=== PATIENT | male | born 1955 | race Caucasian/White ===

== ENCOUNTER 2017-07-15 08:22 | Day surgery (SDC) | payer OTHER ==
[~2017-07-15] VITALS: Ht 193 cm; Wt 86.4 kg
[~2017-07-15 08:22] MED LIST: B/P MED; IBUP800T23 PO
[2017-07-15 08:25] VITALS: BP 90/46; PULSE 90; RESP 20; TEMP 97.5; O2SAT 97
[2017-07-15 08:54] LABS: AUTOMATED NEUTROPHIL # 6.5 TH/MM3 (1.8-7.7); BASOPHIL % 0.5 % (0.0-2.0); EOSINOPHIL # 0.1 TH/MM3 (0-0.4); EOSINOPHIL % 0.9 % (0.0-4.0); LYMPH % 11.6 % (9.0-44.0); MEAN CORPUSCULAR HGB CONC 35.5 % (32.0-36.0); MEAN PLATELET VOLUME 9.1 FL (7.0-11.0); MONOCYTE # 0.8 TH/MM3 (0-0.9); PLATELET COUNT 68 TH/MM3 (150-450); RED BLOOD COUNT 2.07 MIL/MM3 (4.50-5.90); RED CELL DISTRIBUTION WIDTH 13.1 % (11.6-17.2); WHITE BLOOD COUNT 8.5 TH/MM3 (4.0-11.0)
[2017-07-15] MEDS ORDERED: ceFAZolin 2 GM PREMIX 50 ML IV SCH (09:00)
[2017-07-15] MEDS ORDERED: SODIUM CHLOR 0.9% 1000 ML INJ 1,000 ML IV SCH (09:00)
[2017-07-15] MEDS ORDERED: VANCOMYCIN 1000 MG/NS 250 ML ON-CALL IV SCH ×2 (09:00)
[2017-07-15 09:02] LABS: INTERNATIONAL NORMALIZED RATIO 1.6 RATIO; PROTHROMBIN TIME - PATIENT 16.6 SEC (9.8-11.6)
[2017-07-15] MEDS ORDERED: FURO40TA PO (09:08)
[2017-07-15] MEDS ORDERED: AMLO5TAB2 PO (09:08)
[2017-07-15] MEDS ORDERED: SPIR100T PO (09:08)
[2017-07-15] MEDS ORDERED: OXYC1CAP2 (09:08)
[2017-07-15] MEDS ORDERED: CIPR-9 PO (09:08)
[2017-07-15] MEDS ORDERED: SENN8.6T81 PO (09:08)
[2017-07-15] MEDS ORDERED: LINE1TAB PO (09:08)
[2017-07-15 09:18] LABS: HEMATOCRIT 19.9 % (39.0-51.0); HEMOGLOBIN 7.1 GM/DL (13.0-17.0)
[2017-07-15 10:02] LABS: BICARBONATE 16.3 MEQ/L (21.0-32.0); CALCIUM 8.5 MG/DL (8.5-10.1); CREATININE 1.74 MG/DL (0.60-1.30)
[2017-07-15] MEDS ORDERED: IOHEXOL 350 MG/ML 10 ML VIAL (for RAD DIAG) IVCONTRAST ONE (10:25)
--- NOTE | 2017-07-15 11:01 | RADRPT ---
EXAM DATE/TIME: 07/15/2017 10:20 [facility] COMPARISON: No previous studies available for comparison. INDICATIONS : Hypotension post paracentesis. IV CONTRAST: 75 cc Omnipaque 350 (iohexol) IV ORAL CONTRAST: No oral contrast ingested. RADIATION DOSE: 13.53 CTDIvol (mGy) MEDICAL HISTORY : Chronic obstructive pulmonary disease. Hypertension. Hepatitis C. SURGICAL HISTORY : None. ENCOUNTER: Initial ACUITY: 1 day PAIN SCALE: 9/10 LOCATION: abdomen TECHNIQUE: Volumetric scanning of the abdomen and pelvis was performed. Using automated exposure control and ad justment of the mA and/or kV according to patient size, radiation dose was kept as low as reasonably achievable to obtain optimal diagnostic quality images. DICOM format image data is available electro nically for review and comparison. FINDINGS: Minimal consolidative changes right lower lobe. Tense ascites is evident. There is no evidence for arterial hemorrhage. Pelvic contents are unremarkable. Liver small and shrunken. Spleen and kidney s are unremarkable. CONCLUSION: Tense ascites.. Jose Stokes MD FACR on July 15, 2017 at 10:55 Board Certified Radiologist. This report was verified electronically.
[2017-07-15] MEDS ORDERED: MIDAZOLAM HCL 2 MG/2 ML VIAL ONE ×2 (11:25→12:08)
[2017-07-15] MEDS ORDERED: ALBUMIN 25% INJ 200 ML IV ONE (12:00)
[2017-07-15 12:40] VITALS: BP 104/62; PULSE 78; RESP 20; TEMP 96.3; O2SAT 97
--- NOTE | 2017-07-15 12:41 | PD.RAD ---
Post Procedure Progress Note Pre Procedure Diagnosis: (1) Cirrhosis (2) Hepatitis C (3) Ascites Post Procedure Diagnosis: (1) Ascites (2) Cirrhosis (3) Hepatitis C Procedure Date: Jul 15, 2017 Supervising Radiologist: Bridger Singleton Proceduralist/Assist: Arelis iLcona, RT(R)(), Shalom Lozano RT(R) Anesthesia: Local, Analgesia, Conscious Sedation Plan of Activity Patient to Unit: ROPU Patient Condition: Good See PACS Report for procedural detail/treatment Drainage Procedure Procedure 1 Imaging Guidance: Fluoroscopy, Ultrasound Procedure Type: Peritoneal Catheter Tunneled (Aspira) Procedure: Placement E[place]an: 16 Drainage: [place] drainage Fluid Removal (CCs): 4550 Fluid Description: Bloody, Yellow Bridger Singleton MD Jul 15, 2017 12:41
[2017-07-15 12:55] VITALS: BP 103/58; PULSE 86; RESP 20; O2SAT 98
[2017-07-15 13:25] VITALS: BP 110/59; PULSE 85; RESP 20; O2SAT 97
[2017-07-15 13:55] VITALS: BP 106/63; PULSE 84; RESP 20; O2SAT 97
[2017-07-15 14:25] VITALS: BP 105/62; PULSE 83; RESP 20; O2SAT 96
--- NOTE | 2017-07-15 16:40 | RADRPT ---
EXAM DATE/TIME: 07/15/2017 11:03 [facility] COMPARISON: No previous studies available for comparison. INDICATIONS : Patient presents with ascities in need of peritoneal catheter placement for treatment. MEDICAL HISTORY : Asthma Ascities Cirrhosis GERD HTN Hepatitis C UTI Osteomyelitis Smoker SURGICAL HISTORY : None ENCOUNTER: Initial ACUITY: 1 week PAIN SCORE: 8/10 LOCATION: Abdomen FLUORO TIME: 5.1 minutes IMAGE SERIES: 1 SEDATION TIME: 60 minutes CONTRAST: 5 cc Omnipaque (iohexol) 350 SEDATION: 1.) 3 mg midazolam (Versed) IV 2.) 175 mcg fentanyl (Sublimaze) IV Prophylactic antibiotics were administered with appropriate pre-procedure timing. Vancomycin within 2 hours of procedure, Ancef (or alternative) within 1 hour of procedure. DEVICE: 1. 15 Hungarian Aspira Drain PROCEDURE : 1. tunneled paracentesis catheter 2. Conscious sedation with continuous EKG and Oximetry monitoring. The risks, benefits and alternatives to the procedure were explained and verbal and written consent w as obtained. The site was prepped in sterile fashion. Full sterile technique was used, including ca p, mask, sterile gloves and gown and a large sterile sheet. Hand hygiene and 2% chlorhexidine and Be tadine was utilized per protocol for cutaneous antisepsis with appropriate dry time for site. The sk in and subcutaneous tissues were infiltrated with local anesthetic solution. Dermatotomy was made available a scalpel. Subcutaneous tissues were bluntly dissected. Access to the peritoneal cavity was obtained with a 21 gauge micropuncture needle. A 18 wire was advanced through t he needle over which the 34 dilator was placed. Through the outer 4 Hungarian dilator, an 035 Glidewire was advanced into the peritoneal cavity. The wire was steered down into the deep pelvis with the use of a hockey-stick catheter. Wire was exchanged for a stiff angled Glidewire. Low intermittent wall hrerera ction with removal of approximately 4500 cc of blood-tinged ascites. The Aspira drain was used to determine the appropriate length of the subcutaneous tunnel. This area w as anesthetized with additional 3 cc 1% Xylocaine a dermatotomy made with an 11 blade scalpel. The tr act between the 2 dermatotomies was then anesthetized with an additional 6 cc 1% Xylocaine. The peel- away sheath was then advanced through the subcutaneous tunneled with the use of a Singh blunt needl e. Catheter was advanced through the peel-away sheath. The access to the peritoneal cavity was then s erially dilated to accommodate the peel-away sheath. Catheter tip was advanced over the wire and thro ugh the sheath into the peritoneal cavity. Peel-away sheath was removed. Catheter position was confir med fluoroscopically. Contrast injection confirmed appropriate position within the right lateral abdo caron peritoneal cavity. Patient was connected to Conscious sedation was performed with the prescribed dosages and duration as above in the presence of an independent trained radiology nurse to assist in the monitoring of the patient. EKG and oximetry remained stable throughout the procedure. CONCLUSION: 1. Successful placement of a sterile drainage catheter as above. 4500 cc of blood-tinged, straw-color ed fluid was removed. 2. Of note, the patient has symptomatic hypotension which was present at admission. He reports multip le frequent paracentesis. CT scan of the abdomen was performed to exclude a possible source of hemorr meeta. None was found. Ascites appears bland. Patient will receive 50 grams of albumin post procedure to replace protein loss. Bridger Singleton MD on July 15, 2017 at 16:30 Board Certified Radiologist. This report was verified electronically.
== END 2017-07-15 15:05 | disposition home or self-care (01) ==
LOC: HROP 08:22 → HRIP 08:23 → HROP 15:05
PROVIDERS: ATTEND Family Medicine Hospice and Palliative Medicine
DX: R18.8 Other ascites (principal); K74.60 Unspecified cirrhosis of liver; B19.20 Unspecified viral hepatitis C without hepatic coma; J45.909 Unspecified asthma, uncomplicated; I10 Essential (primary) hypertension; K21.9 Gastro-esophageal reflux disease without esophagitis; N39.0 Urinary tract infection, site not specified; M86.9 Osteomyelitis, unspecified; F17.200 Nicotine dependence, unspecified, uncomplicated; Z01.818 Encounter for other preprocedural examination
CPT/HCPCS: 49418; 74177; 80048; 85025; 85610; 85730; 99152; 99153; C1729; C1769; C1887; J2250; J3010; J7030; P9047; Q9967